=== PATIENT | male | born 1965 | race Caucasian/White ===

== ENCOUNTER 2016-10-19 20:38 | Emergency (ER) | payer OTHER ==
[~2016-10-19] VITALS: Ht 185.4 cm; Wt 145.4 kg
[2016-10-19 20:44] VITALS: BP 137/95; PULSE 106; RESP 17; O2SAT 98
[2016-10-19 21:02] LABS: BASOPHILS % (AUTO) 0.4 % (0-3); EOSINOPHILS % (AUTO) 2.1 % (0-5); Mean Corpuscular Hemoglobin 29.3 pg (27.0-35.0); Mean Corpuscular Volume 86.6 fL (81-100); NEUTROPHILS % (AUTO) 54.4 % (40-74); Platelet Count 267 bil/L (150-400)
--- NOTE | 2016-10-19 21:17 | DRSVH ---
PROCEDURE: X-RAY CHEST ONE VIEW, PORTABLE ([id number]) INDICATIONS: chest pain TECHNIQUE: One view of the chest was acquired. COMPARISON: None. FINDINGS: Surgical changes and devices: None. Lungs and pleura: No pleural effusions or pneumothorax. Lungs are clear. Mediastinum: Mediastinal contours appear normal. Heart size is normal. Bones and chest wall: No suspicious bony lesions. Overlying soft tissues appear unremarkable. IMPRESSION: No acute pulmonary process. Dictated by: Galilea Figueredo M.D. on 10/19/2016 at 21:15 Approved by: Galilea Figueredo M.D. on 10/19/2016 at 21:15
[2016-10-19 21:30] LABS: TROPONIN T 0.01 ug/L (0.0-0.011)
[2016-10-19 21:35] VITALS: BP 130/89; PULSE 100; RESP 21; O2SAT 93
[2016-10-19 21:41] LABS: Magnesium 2.1 mg/dL (1.6-2.6)
[2016-10-19 22:30] VITALS: BP 118/63; PULSE 90; RESP 16; O2SAT 96
--- NOTE | 2016-10-19 22:50 | ED.REPORT ---
HPI-Chest Pain 40 and Over Date of Service Oct 19, 2016 ED Provider: Osvaldo Stinson MD Patient is a 51 year old male with a history of HTN controlled with lisinopril who presents to the ED with constant chest pain onset midday yesterday. The pain is exacerbated by tensing of chest muscles. 3 days ago while laying on his shoulder he had trouble focusing his eyes stating the "world shifted" that lasted for a few minutes. This resolved spontaneously without recurrence. The patient feels more SOB than usual with exertion, is a regular user of a "Vape", and admits to diaphoresis. He also reports a coughing "spell" today with associated nausea. Last night he had an episode of palpitations. The patient denies headache, numbness, weakness, fever and recent heavy lifting. PCP Leonel Bell in [place] Nursing Notes Stated Complaint: CHEST PAIN Chief Complaint: Chest Pain Nursing Notes Reviewed: Yes Allergies: Coded Allergies: Penicillins (Verified Allergy, Mild, 10/19/16) SENSITIVE General Time Seen by MD: 22:49 Chief Complaint Chest pain Hx Obtained From: Patient Arrived By: Walk-in Sudden in Onset?: Yes Onset Occurred: 1 day ago Symptom Duration: Since onset Location: : Chest left Quality: Painful Severity: Current: Moderate Severity: Maximum: Moderate Associated with: Reports: Shortness of Breath Risk Factors )( CAD Risk Stratification Risk factors reviewed )( TAD Risk Stratification Risk factors reviewed )( PE Risk Stratification Risk factors reviewed Past Medical History Past Medical History Reports: Hypertension Past Surgical History Denies Smoking History Never Smoker ("vapes") Social History Works at a desk Ambulatory Status Independent Review of Systems Constitutional: Denies: Fever Respiratory: Reports: Shortness of breath Cardiovascular: Reports: Chest pain, Palpitations GI: Reports: Nausea Skin: Reports Diaphoresis Neurologic: Denies: Headache, Numbness, Weakness Complete sys rev & neg: except as marked. Physical Exam Initial Vital Signs Vital Signs (First) Date Time Temp Pulse Resp B/P Pulse Ox O2 Delivery O2 Flow Rate FiO2 10/19/16 20:44 36.9 106 17 137/95 98 Room Air Initial VS: Reviewed Head / Eyes: Atraumatic, Normocephalic, PERRL ENT: Conjunctiva normal, No scleral icterus Neck: Supple, Non-tender, Full range of motion Extremities: Vascular intact, Neuro intact, No swelling, No tenderness Skin: Warm, Dry, No cyanosis Neurologic: Alert, Oriented, Nonfocal Psychiatric: Mood/affect normal, Behavior normal, Normal thought content General/Constitutional: Awake, Alert Respiratory / Chest: Breath sounds NL, Breath sounds = bilat, No respiratory distress, No rales, No rhonchi, No wheezing, No stridor, No chest tenderness Cardiovascular: Heart rate NL, Regular rhythm Frequent premature beats Abdomen: Soft, BS normoactive Interpretation & Diagnostics Lab Results Interpretation Result Diagram: 10/19/16205410/19/162054 Test 10/19/16 20:55 White Blood Count 9.8th/mm3 (3.8-10.1) Red Blood Count 5.69mil/mm3 (4.40-5.80) Hemoglobin 16.7g/dL (13.8-17.2) Hematocrit 49.3% (41.0-50.0) Mean Corpuscular Volume 86.6fL (81-100) Mean Corpuscular Hemoglobin 29.3pg (27.0-35.0) Mean Corpuscular Hemoglobin Concent 33.9% (32.0-37.0) Red Cell Distribution Width 13.7% (12.3-15.4) Platelet Count 267bil/L (150-400) Neutrophils (%) (Auto) 54.4% (40-74) Lymphocytes (%) (Auto) 32.7% (14-46) Monocytes (%) (Auto) 10.0% (4-12) Eosinophils (%) (Auto) 2.1% (0-5) Basophils (%) (Auto) 0.4% (0-3) D-Dimer < 0.50mg/L FEU (<0.50) Sodium Level 137mEq/L (134-144) Potassium Level 4.3mEq/L (3.5-5.2) Chloride Level 101mEq/L (97-108) Carbon Dioxide Level 20mmol/L (18-29) Blood Urea Nitrogen 20mg/dL (6-24) Creatinine 0.95mg/dL (0.76-1.27) Estimat Glomerular Filtration Rate 89mL/min (>59) Glucose Level 123mg/dL (60-99) Calcium Level 9.7mg/dL (8.5-10.1) Magnesium Level 2.1mg/dL (1.6-2.6) Total Bilirubin 0.4mg/dL (0.0-1.2) Aspartate Amino Transf (AST/SGOT) 21U/L (0-50) Alanine Aminotransferase (ALT/SGPT) 32U/L (0-44) Alkaline Phosphatase 53U/L (25-150) Troponin T 0.010ug/L (0.0-0.011) Total Protein 7.9g/dL (6.4-8.4) Albumin 4.5g/dL (3.4-5.0) Hold Galvez Top Tube Received (Received) General Lab Results Interp 1: Labs reviewed ECG Interpretation Time: 20:48 Interpreted by: ED physician Rhythm / Conduction: Tachycardia (107) Rhythm Strip Interpretation : Rhythm Strip Interpretation: frequent premature beats on monitor Time: 23:00 Rhythm Strip Interpretation: Interpreted by me, Rate (97) X-Ray Chest Interpretation Chest Xray Interpretation: IMPRESSION: No acute pulmonary process. Dictated by: Galilea Figueredo M.D. on 10/19/2016 at 21:15 Approved by: Galilea Figueredo M.D. on 10/19/2016 at 21:15 View: Portable, 1 view Interpretation / Wet Read by: Interpret - Radiologist Re-Eval/Medical Decision Med Decision/Clinical Course 51 year old male with chest pain >24 hours. No acute change on ECG. Noted frequent PVCs on monitor, did not seem to be symptomatic. Elected not to trend troponin since pain more than 24 hrs, constant. Dimer negative so PE not pursued further Time of Eval: 23:00 Re-Evaluation/Progress Note: Results and plan for discharge discussed. The patient understands and agrees with the plan. All questions have been answered. Consultation : Note: The patient understands and agrees with the plan. All questions have been answered at this time. Counseled Regarding: Diagnosis, Lab results, Need for follow-up, When/why to return to ED Discharge & Departure Primary Impression: Chest pain Chest pain type: unspecified Qualified Code: R07.9 - Chest pain, unspecified Disposition: Home Discharge Condition All VS Reviewed: Yes Condition: Improved Patient Instructions: Chest Pain (ED) Additional Instructions: Your emergency room evaluation today included interview, examination, chest x- ray, labs and electrocardiogram. Your workup was reassuring. I do not believe your chest pain today is cardiac related. Start taking 81mg daily of Aspirin. Follow up with primary care. Return to the ER for any concerning symptoms. Referrals: NOPCP (PCP) Scribe Attestation Portions of this note were transcribed by Shantelle Titus. I, ( Dr. Stinson) personally performed the history, physical exam and medical decision- making; I reviewed and confirmed the accuracy of the information in the transcribed note. Signed by: Shantelle Titus. Luana, 10/19/2016 , 0000 Osvaldo Stinson MD Oct 19, 2016 22:50 Ralph Titus Oct 19, 2016 22:58 Shantelle Livingston Oct 19, 2016 23:04
[2016-10-19 23:24] VITALS: BP 126/74; PULSE 105; O2SAT 98
== END 2016-10-19 23:27 | disposition home or self-care (01) ==
LOC: SED 20:38
DX: R07.9 Chest pain, unspecified (principal); R06.02 Shortness of breath; R61 Generalized hyperhidrosis; R05 Cough; R11.0 Nausea; R00.2 Palpitations; I10 Essential (primary) hypertension; Z88.0 Allergy status to penicillin